=== PATIENT | female | born 1980 | race Two or more races ===

== ENCOUNTER 2023-05-27 10:17 | Emergency (ER) | payer MEDICAID ==
[~2023-05-27] VITALS: Ht 157.5 cm; Wt 70.5 kg
[2023-05-27 10:23] VITALS: TEMP 98.3
[2023-05-27] MEDS: ONDANSETRON HCL 4 MG/2 ML VIAL IVP ONE (11:52)
[2023-05-27] MEDS: SODIUM CHLORIDE 0.9% 1,000 ML IV ONE (11:53)
[2023-05-27] MEDS: KETOROLAC TROMETHAMINE 30 MG/ML VIAL IVP ONE (11:54)
[2023-05-27 12:00] LABS: BASOPHILS % (AUTO) 1.1 % (0.0-2.0); EOSINOPHILS % (AUTO) 2.4 % (1.0-6.0); HEMATOCRIT 34.3 % (36-46); HEMOGLOBIN 10.4 g/dL (12.0-16.0); LYMPHOCYTES % (AUTO) 18.5 % (22.0-44.0); MEAN CORPUSCULAR HEMOGLOBIN 19.5 pg (26.0-34.0); MEAN CORPUSCULAR HGB CONC 30.2 G/dL (31.0-37.0); MEAN CORPUSCULAR VOLUME 65 fL (80-100); MONOCYTES # (AUTO) 0.3 K/uL (0.1-1.0); MONOCYTES % (AUTO) 5.7 % (2.0-9.0); NEUTROPHILS # (AUTO) 3.8 K/uL (1.8-7.7); NEUTROPHILS % (AUTO) 72.3 % (40.0-70.0); PLATELET COUNT (AUTO) 326 K/uL (150-450); RED BLOOD CELL COUNT(AUTO) 5.32 MIL/uL (4.00-5.20); RED CELL DISTRIBUTION WIDTH 18.9 % (11.5-14.5); WHITE BLOOD COUNT (AUTO) 5.2 K/uL (4.5-11.0)
[2023-05-27 12:09] LABS: ANION GAP 7 mmol/L (8-16); CALCIUM, TOTAL 8.9 mg/dL (8.8-10.5); CARBON DIOXIDE 29 mmol/L (22-29); CHLORIDE 102 mmol/L (98-107); CREATININE 0.64 mg/dL (0.60-1.30); GLOMERULAR FILTR. RATE CALC > 60 mL/min (>60); GLUCOSE,RANDOM 103 mg/dL (70-110); POTASSIUM 3.8 mmol/L (3.5-5.1); SODIUM SERUM 138 mmol/L (136-145); UREA NITROGEN, BLOOD 8 mg/dL (7-18)
[2023-05-27 12:30] LABS: ALANINE AMINOTRANSFERASE 26 U/L (12-78); ALBUMIN 3.3 g/dL (3.4-5.0); ALKALINE PHOSPHATASE 98 U/L (46-116); ASPARTATE AMINOTRANSFERASE 23 U/L (15-37); BILIRUBIN,TOTAL 0.6 mg/dL (0.1-1.0); HCG,QUANTITATIVE < 1 mIU/mL (0-6); LIPASE 45 U/L (16-77); TOTAL PROTEIN, SERUM 7.8 g/dL (6.4-8.2)
[2023-05-27] MEDS ORDERED: CloNIDine HCL 0.2 MG TABLET PO ONE (12:30)
[2023-05-27] MEDS: ACETAMINOPHEN 1000 MG/ISO-OSM 100 ML IV ONE (12:54)
[2023-05-27] MEDS ORDERED: ONDA-104 PO (13:14)
[2023-05-27] MEDS ORDERED: IBUP-1492 PO (13:14)
[2023-05-27 14:06] VITALS: BP 127/66; PULSE 88; RESP 18
[2023-05-27 15:18] LABS: RBC MORPHOLOGY COMMENT ABNORMAL RBC MORPH
== END 2023-05-27 14:15 | disposition home or self-care (01) ==
LOC: EMS 10:21
DX: F11.23 Opioid dependence with withdrawal (principal); Z98.51 Tubal ligation status
CPT/HCPCS: 99284; 96365; 96375; 96361; 80053; 83690; 84702; 85025; 36415; J1885; J2405; J7030; J0131